=== PATIENT | female | born 1990 | race African-American/Black ===

== ENCOUNTER 2017-02-12 00:58 | Emergency (ER) | payer OTHER ==
[~2017-02-12] VITALS: Ht 167.6 cm; Wt 80.0 kg
[2017-02-12 01:03] VITALS: Ht 167.6 cm; Wt 80.0 kg
[2017-02-12 01:22] LABS: URINE BLOOD (Dip) POC Negative (NEGATIVE)
[2017-02-12] MEDS ORDERED: IBUP-1542 PO (01:23)
[2017-02-12 01:40] VITALS: RESP 22; TEMP 99.5
[2017-02-12 02:38] LABS: ADD SCAN DIFF NO
[2017-02-12 02:43] LABS: BASOPHILS % 0.5 % (0.0-2.0); EOSINOPHILS # 0.1 10^3/ul (0.0-0.5); EOSINOPHILS % 1.4 % (0.0-7.0); HEMATOCRIT 39.4 % (37.0-47.0); HEMOGLOBIN 13.1 g/dl (12.0-16.0); LYMPHOCYTES # 2.8 10^3/ul (0.8-2.9); LYMPHOCYTES % 44.5 % (15.0-51.0); MEAN CORPUSCULAR HEMOGLOBIN 30.5 pg (29.0-33.0); MEAN CORPUSCULAR HGB CONC 33.2 g/dl (32.0-37.0); MEAN CORPUSCULAR VOLUME 91.6 fl (82.0-101.0); MEAN PLATELET VOLUME 9.5 fl (7.4-10.4); MONOCYTE # 0.5 10^3/ul (0.3-0.9); MONOCYTES % 7.1 % (0.0-11.0); NEUTROPHIL # 2.9 10^3/ul (1.6-7.5); NEUTROPHILS % 46.3 % (39.0-77.0); PLATELET COUNT 265 10^3/UL (140-415); WHITE BLOOD COUNT 6.3 10^3/ul (4.8-10.8)
[2017-02-12 02:46] LABS: ADD UMIC NO; URINE BILIRUBIN (Dip) NEGATIVE (NEGATIVE); URINE BLOOD (Dip) NEGATIVE (NEGATIVE); URINE COLOR LT. YELLOW (YELLOW); URINE GLUCOSE (Dip) NEGATIVE (NEGATIVE); URINE KETONES (Dip) NEGATIVE (NEGATIVE); URINE LEUKOCYTE ESTERASE (Dip) NEGATIVE (NEGATIVE); URINE NITRITE (Dip) NEGATIVE (NEGATIVE); URINE TOTAL PROTEIN (Dip) NEGATIVE (NEGATIVE); URINE UROBILINOGEN (Dip) 1.0 E.U./dL (0.1-1.0)
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
[2017-02-12 02:56] LABS: ALBUMIN 4.7 g/dl (3.3-4.9)
[2017-02-12 02:57] LABS: POTASSIUM 3.4 mmol/L (3.5-5.1)
[2017-02-12 02:59] LABS: ALBUMIN/GLOBULIN RATIO 1.34; CREATININE 0.82 mg/dl (0.44-1.00); TOTAL PROTEIN 8.2 g/dl (6.1-8.1)
[2017-02-12 03:00] LABS: CALCIUM 9.1 mg/dl (8.4-10.2)
[2017-02-12] MEDS ORDERED: SUCRALFATE (100 MG/ML) 10ML CUP GTB SCH (03:00)
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
[2017-02-12 03:11] VITALS: BP 125/73; PULSE 75
== END 2017-02-12 03:13 | disposition home or self-care (01) ==
LOC: E/R 00:58
DX: S30.1XXA Contusion of abdominal wall, initial encounter (principal); K21.0 Gastro-esophageal reflux disease with esophagitis; I10 Essential (primary) hypertension; W50.0XXA Accidental hit or strike by another person, initial encounter; Y92.89 Other specified places as the place of occurrence of the external cause
CPT/HCPCS: 36415; 76705; 80053; 81003; 83690; 85025

== ENCOUNTER 2017-10-30 22:17 | Emergency (ER) | payer SELFPAY ==
[~2017-10-30] VITALS: Ht 162.6 cm; Wt 88.8 kg
[~2017-10-30 22:17] MED LIST: IBUP-1542 PO
[2017-10-30 22:20] VITALS: Ht 162.6 cm; Wt 88.8 kg
--- NOTE | 2017-10-30 23:13 | ERD ---
ER Documentation Chief Complaint Chief Complaint 2 months , vag bleeding x 2 days HPI 26-year-old female presents here to emergency department for complaints of vaginal bleeding for the last 2 days, patient is wearing depend, has soaked 4 pads per day. Patient is approximately 8 weeks . Patient is 2 para 1, 0. Patient is complaining of pelvic pain cramping pain, 4/ scale, accompanying the vaginal bleeding. Patient denies any fever chills. Patient denies any hematuria or dysuria. ROS All systems reviewed and are negative except as per history of present illness. Medications Home Meds Active Scripts Ibuprofen* (Ibuprofen*) 600 Mg Tablet, 600 MG PO Q8 for PAIN AND/OR INFLAMMATION , #30 TAB Prov:ALAN MENA MD 02/12/17 Allergies Allergies: Coded Allergies: Sulfa (Sulfonamide Antibiotics) (Verified Allergy, Unknown, 02/12/17) PMhx/Soc History of Surgery: Yes Anesthesia Reaction: No Hx Cardiac Disorders: Yes (htn) Hx Alcohol Use: No Hx Substance Use: No Hx Tobacco Use: No Smoking Status: Never smoker FmHx Family History: No coronary disease, No diabetes, No other Physical Exam Vitals Vital Signs Date Time Temp Pulse Resp B/P Pulse Ox O2 Delivery O2 Flow Rate FiO2 10/30/17 22:20 99.2 86 20 151/94 100 Physical Exam GENERAL: The patient is well developed and appropriate for usual state of health, in no apparent distress. CHEST: Clear to auscultation bilaterally. There are no rales, wheezes or rhonchi. HEART: Regular rate and rhythm. No murmurs, clicks, rubs or gallops. No S3 or S4. ABDOMEN: Soft, nontender and nondistended. Good bowel sounds. No rebound or guarding. No gross peritonitis. No gross organomegaly or masses. No Lopez sign or McBurney point tenderness. BACK: No midline or flank tenderness. EXTREMITIES: Equal pulses bilaterally. There is no peripheral clubbing, cyanosis or edema. No focal swelling or erythema. Full range of motion. Grossly neurovascularly intact. NEURO: Alert and oriented. Cranial nerves 2-12 intact. Motor strength in all 4 extremities with 5/5 strength. Sensation grossly intact. Normal speech and gait. SKIN: There is no apparent rash or petechia. The skin is warm and dry. HEMATOLOGIC AND LYMPHATIC: There is no evidence of excessive bruising or lymphedema. No gross cervical, axillary, or inguinal lymphadenopathy. Vaginal: Moderate amount of blood in the vaginal vault, cervical) no cervical motion tenderness or adnexal tenderness noted Result Diagram: 10/30/17 2340 Results 24 hrs Laboratory Tests Test 10/30/17 23:40 10/30/17 23:45 White Blood Count 8.310^3/ul Red Blood Count 3.8510^6/ul Hemoglobin 11.7g/dl Hematocrit 34.9% Mean Corpuscular Volume 90.6fl Mean Corpuscular Hemoglobin 30.4pg Mean Corpuscular Hemoglobin Concent 33.5g/dl Red Cell Distribution Width 12.1% Platelet Count 02531^3/UL Mean Platelet Volume 8.9fl Neutrophils % 58.9% Lymphocytes % 30.3% Monocytes % 8.1% Eosinophils % 1.7% Basophils % 0.5% Nucleated Red Blood Cells % 0.0/100WBC Neutrophils # 4.910^3/ul Lymphocytes # 2.510^3/ul Monocytes # 0.710^3/ul Eosinophils # 0.110^3/ul Basophils # 0.010^3/ul Nucleated Red Blood Cells # 0.010^3/ul Beta HCG, Quantitative 9161.5mIU/ml Urine Color GABY Urine Clarity CLEAR Urine pH 5.0 Urine Specific [place] 1.029 Urine Ketones NEGATIVEmg/dL Urine Nitrite POSITIVEmg/dL Urine Bilirubin NEGATIVEmg/dL Urine Urobilinogen 2+mg/dL Urine Leukocyte Esterase NEGATIVELeu/ul Urine Microscopic RBC 53/HPF Urine Microscopic WBC 21/HPF Urine Squamous Epithelial Cells FEW/HPF Urine Mucus MODERATE/HPF Urine Hemoglobin 3+mg/dL Urine Glucose NEGATIVEmg/dL Urine Total Protein 1+mg/dl PROCEDURE: US OB. CLINICAL INDICATION: Positive , vaginal bleeding TECHNIQUE: Transabdominal and transvaginal views of the pelvis are available for review. COMPARISON: No prior studies are available for comparison. FINDINGS: Uterus: Normal contour and, the size estimated at 12.7 x 7.9 x 5.8 cm. There is no evidence of myometrial mass. Endometrial cavity: No intrauterine is identified, the thickness is normal measuring 7.8 mm. Normal blood flow on Doppler interrogation is demonstrated. Right ovary / adnexa: The ovary is not visualized. There is no evidence of adnexal mass or free fluid. Left ovary/adnexa: The ovary is not visualized. There is no evidence of adnexal mass or free fluid. Cul-de-sac: No evidence of free fluid. RPTAT:HJJR IMPRESSION: No intrauterine identified. Ectopic is not excluded, but there are no suspicious findings at this time. Correlation with serial beta HCGs is suggested with followup as clinically indicated. Physician Adriel Date Time Electronically viewed and signed by Todd Saeed Physician on 10/30/2017 23:46 JR/ CC: BART PALMER [employer] Procedures/MDM Medical Decision Making: Patients vaginal bleeding is most likely consistent of possible spontaneous . Patient does not show any evidence of hypovolemic shock. Patients hemoglobin and hematocrit is stable. There is low suspicion for ectopic . CARMEN results show intrauterine , patient had a previous ultrasound with possible gestational sac, most likely has passed the .. BetaHCG Quantitative is very low for an 8 week .The patient is Rh+, does not need RhoGAM this time. There is no signs of symptoms of dehydration. There is low suspicion for sepsis. Patient appears well and is hemodynamically stable. Patient also has urinary tract infection is currently on treatment. Disposition: Home. Condition: Stable Instructions: Patient is advised to do bed rest, avoid heavy lifting, and avoid having sex until cleared by OB doctor. Patient is advised to follow up with OB doctor or here at the ER in 48 hours for reevaluation of symptoms, repeat beta HCG quantitative and ultrasound. Patient is advised that is symptoms are worst, severe bleeding, dizziness, severe abdominal pain, fever, worst signs and symptoms to return to the emergency department immediately. Disclaimer: Inadvertent spelling and grammatical errors are likely due to EHR/ dictation software use and do not reflect on the overall quality of patient care. Also, please note that the electronic time recorded on this note does not necessarily reflect the actual time of the patient encounter. Departure Diagnosis: Primary Impression: Vaginal bleeding in patient at less than 20 weeks gestation Condition: Stable Patient Instructions: Bleeding During Early Additional Instructions: Patient is advised to do bed rest, avoid heavy lifting, and avoid having sex until cleared by OB doctor. Patient is advised to follow up with OB doctor or here at the ER in 48 hours for reevaluation of symptoms, repeat beta HCG quantitative and ultrasound. Patient is advised that is symptoms are worst, severe bleeding, dizziness, severe abdominal pain, fever, worst signs and symptoms to return to the emergency department immediately. BART PALMER NP Oct 30, 2017 23:12
--- NOTE | 2017-10-30 23:46 | RADRPT ---
PROCEDURE: US OB. CLINICAL INDICATION: Positive , vaginal bleeding TECHNIQUE: Transabdominal and transvaginal views of the pelvis are available for review. COMPARISON: No prior studies are available for comparison. FINDINGS: Uterus: Normal contour and, the size estimated at 12.7 x 7.9 x 5.8 cm. There is no evidence of singh metrial mass. Endometrial cavity: No intrauterine is identified, the thickness is normal measuring 7.8 mm. Normal blood flow on Doppler interrogation is demonstrated. Right ovary / adnexa: The ovary is not visualized. There is no evidence of adnexal mass or free fl uid. Left ovary/adnexa: The ovary is not visualized. There is no evidence of adnexal mass or free fluid . Cul-de-sac: No evidence of free fluid. RPTAT:HJJR IMPRESSION: No intrauterine identified. Ectopic is not excluded, but there are no suspiciou s findings at this time. Correlation with serial beta HCGs is suggested with followup as clinically indicated. Physician Adriel Date Time Electronically viewed and signed by Physician Adriel on 10/30/2017 23:46 /
[2017-10-30 23:56] LABS: BASOPHILS % 0.5 % (0.0-2.0); EOSINOPHILS # 0.1 10^3/ul (0.0-0.5); EOSINOPHILS % 1.7 % (0.0-7.0); HEMATOCRIT 34.9 % (37.0-47.0); HEMOGLOBIN 11.7 g/dl (12.0-16.0); LYMPHOCYTES # 2.5 10^3/ul (0.8-2.9); LYMPHOCYTES % 30.3 % (15.0-51.0); MEAN CORPUSCULAR HEMOGLOBIN 30.4 pg (29.0-33.0); MEAN CORPUSCULAR HGB CONC 33.5 g/dl (32.0-37.0); MEAN CORPUSCULAR VOLUME 90.6 fl (82.0-101.0); MEAN PLATELET VOLUME 8.9 fl (7.4-10.4); MONOCYTE # 0.7 10^3/ul (0.3-0.9); MONOCYTES % 8.1 % (0.0-11.0); NEUTROPHIL # 4.9 10^3/ul (1.6-7.5); NEUTROPHILS % 58.9 % (39.0-77.0); PLATELET COUNT 244 10^3/UL (140-415); RED BLOOD COUNT 3.85 10^6/ul (4.20-5.40); RED CELL DISTRIBUTION WIDTH 12.1 % (11.5-14.5); WHITE BLOOD COUNT 8.3 10^3/ul (4.8-10.8)
[2017-10-31 00:04] LABS: ADD UMIC YES; UR ASCORBIC ACID 20 mg/dL (NEGATIVE); UR BILIRUBIN (Dip) NEGATIVE (NEGATIVE); UR BLOOD (Dip) 3+ mg/dL (NEGATIVE); UR CLARITY CLEAR (CLEAR); UR COLOR AMBER (YELLOW); UR GLUCOSE (Dip) NEGATIVE (NEGATIVE); UR KETONES (Dip) NEGATIVE (NEGATIVE); UR LEUKOCYTE ESTERASE (Dip) NEGATIVE Leu/ul (NEGATIVE); UR MUCUS MODERATE /HPF (NONE SEEN); UR NITRITE (Dip) POSITIVE (NEGATIVE); UR RBC 53 /HPF (0-5); UR SPECIFIC GRAVITY (Dip) 1.029 (1.003-1.030); UR SQUAMOUS EPITHELIAL CELL FEW /HPF (FEW); UR TOTAL PROTEIN (Dip) 1+ mg/dl (NEGATIVE); UR UROBILINOGEN (Dip) 2+ mg/dL (NEGATIVE)
== END 2017-10-31 01:32 | disposition home or self-care (01) ==
LOC: FTE 22:17
DX: O20.9 Hemorrhage in early pregnancy, unspecified (principal); O10.011 Pre-existing essential hypertension complicating pregnancy, first trimester; R10.2 Pelvic and perineal pain; Z3A.01 Less than 8 weeks gestation of pregnancy
CPT/HCPCS: 76801; 76817; 81001; 84702; 85025; 86900; 86901

== ENCOUNTER 2018-03-06 00:05 | Emergency (ER) | END 2018-03-06 01:00 | disposition home or self-care (01) ==

== ENCOUNTER 2018-11-29 07:49 | Outpatient (CLI) | payer BC ==
[~2018-11-29] VITALS: Ht 175.3 cm; Wt 100.8 kg
[2018-11-29 08:00] VITALS: BP 129/63; PULSE 88; RESP 18; Ht 175.3 cm; Wt 100.8 kg
[2018-11-29] MEDS ORDERED: LABE100T7 PO (08:05)
[2018-11-29] MEDS ORDERED: PREN-99 PO (08:06)
[2018-11-29] MEDS ORDERED: ACETAMINOPHEN 500 MG TAB PO STA (09:25)
--- NOTE | 2018-11-29 12:04 | TRIAGE ---
OB Triage Datetime Report Generated by CPN: 11/29/2018 12:03 Datetime: 11/29/2018 10:55 Labor Evaluation Frequency: none Monitor Mode: External Resting Tone [place]: Relaxed Heart Rate FHR Baseline Rate: 150 Monitor Mode: External US FHR Baseline Changes: No Baseline Change Variability: Moderate 6-25 bpm Decelerations: Variable Category: Category II Datetime: 11/29/2018 10:36 Pain Assessment Pain Scale: 3 Pain Presence: Intermittent Pain Type: Ache Pain Location: Head; Neck Pain Relief Measures: Comfort Measures Datetime: 11/29/2018 10:01 Labor Evaluation Frequency: none Monitor Mode: External Resting Tone [place]: Relaxed Heart Rate FHR Baseline Rate: 150 Monitor Mode: External US FHR Baseline Changes: No Baseline Change Variability: Moderate 6-25 bpm Decelerations: Variable Category: Category II Comments: appropriate for GA Datetime: 11/29/2018 09:20 Maternal Assessment Level of Consciousness: Fully Conscious DTR's/Clonus: DTRs 2+; No Clonus Headache: Occipital; Frontal Blurred Vision: Yes RUQ Epigastric Pain: Denies Datetime: 11/29/2018 08:14 Stage of : OB Triage Assessment Type: Triage Maternal Assessment Level of Consciousness: Fully Conscious DTR's/Clonus: DTRs 2+; No Clonus Headache: Denies Blurred Vision: No Respiratory Effort: Unlabored; Regular Rhythm; Equal Expansion Breath Sounds, Left: Clear and Equal Breath Sounds, Right: Clear and Equal Nausea/Vomiting: Denies RUQ Epigastric Pain: Denies Lower Extremities Edema: Bilateral Lower Extremities Degree: 1+ Upper Extremities Edema: None Degree: None Facial Edema: None Temperature Route: Oral Fall Risk Assessment History of Falling: (0) No Secondary Diagnosis: (0) No Ambulatory Aid: (0) Bedrest/Nurse Assist IV Therapy: (0) No Gait: (0) Normal/Bedrest/Immobile Mental Status: (0) Oriented to Own Ability Fall Score: 0 Fall Risk Score Definition: No Risk: No action required Labor Evaluation Frequency: none Monitor Mode: External Resting Tone [place]: Relaxed Heart Rate FHR Baseline Rate: FHT at 158 Monitor Mode: External US FHR Baseline Changes: No Baseline Change Pain Assessment Pain Scale: 7 Pain Presence: Intermittent Pain Type: Ache Pain Location: Head; Neck Datetime: 11/29/2018 08:09 Time of Arrival: 11/29/2018 07:42 EGA: 20.4 Arrived By: Ambulatory Arrived From: Home Chief Complaint: SOB, headache, neckpain, blurred vision Movement: Present Contractions: Denies/Absent Rupture of Membranes: Denies Vaginal Bleeding: None Vaginal Discharge: Denies Recent Sexual Intercouse: Denies Abdominal Trauma: Not Applicable Patient Complaints: None Initial Plan: MICHELLE
--- NOTE | 2018-11-29 12:27 | PN ---
Triage Information Date/Time November 29, 2018 Reason for visit: Rule out PIH Weeks of Gestation 20 weeks and 4 days /Para 2 para 1 Diabetes: none Hypertention: none Additional information 27-year-old with IUP at 20 weeks and [address] care [address] Tee, presented with complaint of headache, blurred vision today. Reports GARCÍA was in the posterior occiputal area with radiation to the frontal area and Right side of the head. Reports had checked her blood pressure at home and was 140/90s Antepartum course was comp gated by chronic hypertension. Patient currently on labetalol 100 mg p.o. twice daily. She reports increased weight gain since beginning of as well as swelling of lower extremity and hands. She works as an RN in the hospital. Has been monitoring and checking her blood pressure at home Denies any prior episodes of similar headaches in the past. Denies any leaking of fluid, vaginal bleeding decreased movement. Objective Vital Signs Date Temp Pulse Resp B/P (MAP) Pulse Ox O2 O2 Flow FiO2 Time Delivery Rate 11/29/18 98.6 88 18 129/63 Room Air 08:00 (85) Heart Rate: 130's Heart Rate Comments Category 1 Exam Appearance: Alert and oriented x4 does not appear to be in any acute distress Abdomen: Soft, gravid, fundal height consistent with gestational age heart tracing appropriate for gestational age [place] no contraction on the monitor Neuro exam: Within normal limits Laboratory Tests Test 11/29/18 09:28 11/29/18 09:47 Urine Color YELLOW Urine Clarity CLEAR Urine pH 6.0 Urine Specific [place] 1.027 Urine Ketones TRACE mg/dL Urine Nitrite NEGATIVE mg/dL Urine Bilirubin NEGATIVE mg/dL Urine Urobilinogen 1+ mg/dL Urine Leukocyte Esterase NEGATIVE Sarah/ul Urine Microscopic RBC 1 /HPF Urine Microscopic WBC 1 /HPF Urine Squamous Epithelial Cells FEW /HPF Urine Mucus FEW /HPF Urine Hemoglobin NEGATIVE mg/dL Urine Glucose NEGATIVE mg/dL Urine Total Protein 1+ mg/dl White Blood Count 8.5 10^3/ul Red Blood Count 3.63 10^6/ul Hemoglobin 10.9 g/dl Hematocrit 32.9 % Mean Corpuscular Volume 90.6 fl Mean Corpuscular Hemoglobin 30.0 pg Mean Corpuscular Hemoglobin Concent 33.1 g/dl Red Cell Distribution Width 12.5 % Platelet Count 202 10^3/UL Mean Platelet Volume 9.4 fl Immature Granulocytes % 0.800 % Neutrophils % 60.4 % Lymphocytes % 27.6 % Monocytes % 9.4 % Eosinophils % 1.3 % Basophils % 0.5 % Nucleated Red Blood Cells % 0.0 /100WBC Immature Granulocytes # 0.070 10^3/ul Neutrophils # 5.1 10^3/ul Lymphocytes # 2.3 10^3/ul Monocytes # 0.8 10^3/ul Eosinophils # 0.1 10^3/ul Basophils # 0.0 10^3/ul Nucleated Red Blood Cells # 0.0 10^3/ul Prothrombin Time 12.8 Sec Prothrombin Time Ratio 1.0 INR International Normalized Ratio 0.95 Activated Partial Thromboplast Time 23.1 Sec Sodium Level 137 mmol/L Potassium Level 4.0 mmol/L Chloride Level 106 mmol/L Carbon Dioxide Level 25 mmol/L Anion Gap 6 Blood Urea Nitrogen 6 mg/dl Creatinine 0.55 mg/dl Est Glomerular Filtrat Rate mL/min > 60 mL/min Glucose Level 83 mg/dl Uric Acid 3.8 mg/dl Calcium Level 9.2 mg/dl Total Bilirubin 0.2 mg/dl Direct Bilirubin 0.00 mg/dl Indirect Bilirubin 0.2 mg/dl Aspartate Amino Transf (AST/SGOT) 26 IU/L Alanine Aminotransferase (ALT/SGPT) 49 IU/L Alkaline Phosphatase 58 IU/L Total Protein 6.4 g/dl Albumin 3.6 g/dl Globulin 2.80 g/dl Albumin/Globulin Ratio 1.28 Results/Medications Result Diagram: 11/29/1847 11/29/18 0947 Results 24 hrs Laboratory Tests Test 11/29/18 09:28 11/29/18 09:47 Urine Color YELLOW Urine Clarity CLEAR Urine pH 6.0 Urine Specific [place] 1.027 Urine Ketones TRACE A Urine Nitrite NEGATIVE Urine Bilirubin NEGATIVE Urine Urobilinogen 1+ H Urine Leukocyte Esterase NEGATIVE Urine Microscopic RBC 1 Urine Microscopic WBC 1 Urine Squamous Epithelial Cells FEW Urine Mucus FEW A Urine Hemoglobin NEGATIVE Urine Glucose NEGATIVE Urine Total Protein 1+ H White Blood Count 8.5 # Red Blood Count 3.63 L Hemoglobin 10.9 L Hematocrit 32.9 L Mean Corpuscular Volume 90.6 Mean Corpuscular Hemoglobin 30.0 Mean Corpuscular Hemoglobin Concent 33.1 Red Cell Distribution Width 12.5 Platelet Count 202 Mean Platelet Volume 9.4 Immature Granulocytes % 0.800 H Neutrophils % 60.4 Lymphocytes % 27.6 Monocytes % 9.4 Eosinophils % 1.3 Basophils % 0.5 Nucleated Red Blood Cells % 0.0 Immature Granulocytes # 0.070 H Neutrophils # 5.1 Lymphocytes # 2.3 Monocytes # 0.8 Eosinophils # 0.1 Basophils # 0.0 Nucleated Red Blood Cells # 0.0 Prothrombin Time 12.8 Prothrombin Time Ratio 1.0 INR International Normalized Ratio 0.95 Activated Partial Thromboplast Time 23.1 Sodium Level 137 Potassium Level 4.0 Chloride Level 106 Carbon Dioxide Level 25 Anion Gap 6 Blood Urea Nitrogen 6 L Creatinine 0.55 Est Glomerular Filtrat Rate mL/min > 60 Glucose Level 83 Uric Acid 3.8 Calcium Level 9.2 Total Bilirubin 0.2 Direct Bilirubin 0.00 Indirect Bilirubin 0.2 Aspartate Amino Transf (AST/SGOT) 26 Alanine Aminotransferase (ALT/SGPT) 49 Alkaline Phosphatase 58 Total Protein 6.4 Albumin 3.6 Globulin 2.80 Albumin/Globulin Ratio 1.28 Disposition: Discharge Assessment/Plan IUP at 20 weeks and 4 days Chronic hypertension, well controlled with labetalol 100 mg p.o. twice daily Patient has serial blood pressure monitoring in triage for several hours. Blood pressures are all within normal range. PH labs were negative. She received thousand milligrams of Tylenol orally and her headache improved significantly from 7-3. Advised the patient recommended to go to emergency room for evaluation of headache as recommended by her primary OB Dr. Tee. I reviewed again her on the signs and symptoms of preeclampsia including headache, blurred vision, epigastric pain or right upper quadrant pain. Again strict precaution was given to patient. Advised patient to rest and take baby aspirin 80 mg once a day and to again report to emergency room or triage if she has above symptoms especially if the headache does not resolve with p.o. Tylenol I still recommend the patient to be seen in the emergency room. Patient verbalized understanding importance of this ER visit Follow-up within 24 hours with her primary OB office with a nurse visit discussed with patient Advised the patient to have rest at home All questions were answered to patient's best satisfaction and patient verbalized understanding. DIANE VERDIN MD Nov 29, 2018 12:22
== END 2018-11-29 11:37 | disposition home or self-care (01) ==
LOC: OBT 07:49 → L-D 07:50 → OBT 11:37
PROVIDERS: ATTEND Obstetrics & Gynecology
DX: O13.2 Gestational [pregnancy-induced] hypertension without significant proteinuria, second trimester (principal); Z3A.20 20 weeks gestation of pregnancy
CPT/HCPCS: 80053; 81001; 84560; 85025; 85610; 85730; G0463

== ENCOUNTER 2019-01-01 14:16 | Inpatient (IN) | payer BC ==
[~2019-01-01] VITALS: Ht 175.3 cm; Wt 104.9 kg
[~2019-01-01 14:16] MED LIST changes: -IBUP-1542 PO; +LABE100T7 PO; +PREN-99 PO
[2019-01-01 14:57] VITALS: Ht 175.3 cm; Wt 104.9 kg
[2019-01-01 14:58] VITALS: BP 137/75; PULSE 105; RESP 20
[2019-01-01] MEDS ORDERED: PNV11TAB PO (15:11)
--- NOTE | 2019-01-01 18:00 | HP ---
Date/Time of Note Date/Time of Note DATE: 01/01/19 TIME: 17:56 OB - History Hx of Present Free Text/Dictation 26+wks GA with Chronic HTN on labetalol : 4 Para: 1 Care: Good Care Ultrasounds: Normal mid trimester US Obstetrical Complications: Gestational Hypertension Medical Complications: None Past Family/Social History * Past Medical, Surgical, Family and Obstetric Histories reviewed from chart. PMH Chronic HTN PSH denies Alergy Sulfa and lorazepam OB Admission Exam Vital Signs Vital Signs Vital Signs Date Temp Pulse Resp B/P (MAP) Pulse Ox O2 O2 Flow FiO2 Time Delivery Rate 01/01/19 98.6 105 20 137/75 98 14:58 (95) Physical Exam Abdomen: WNL Extremities: Normal Membranes: Intact Heart Rate: 140's Accelerations: Accelerations Present Decelerations: No Decelerations Varibility: Marked Last 72 hours Lab Results CBC & BMP 01/01/19 15:48 Liver Function Test 01/01/19 15:48 Alanine Aminotransferase (ALT/SGPT) 29 Albumin 3.4 Alkaline Phosphatase 54 Aspartate Amino Transf (AST/SGOT) 24 Direct Bilirubin 0.00 Total Protein 6.2 OB Assessment/Plan Reason for admission: observation Plan: Expectant Management Other plan: CXL EFW 24 hr urine for Pr Close Monitoring Close Observation Perinatology consult Neonatology consult MARTY BOLTON M.D. Jan 01, 2019 18:00
[2019-01-01] MEDS ORDERED: LABETALOL 100 MG TAB PO SCH (21:00)
--- NOTE | 2019-01-02 05:48 | DS ---
Date/Time of Note Date/Time of Note DATE: 01/02/19 TIME: 05:38 Obstetrical Discharge Record Final Diagnosis Final Diagnosis: not delivered Other Final Diagnosis -Single intrauterine at 26 weeks -Chronic hypertension Dr. Tee requests to wheezing, evaluate and discharge the patient. 28 years old 4 para 1021 with single intrauterine at 26 weeks and 2 days with chronic hypertension seen in triage for abdominal pain. She had one elevated blood pressure in range of severe, rest of her blood pressure were within normal limit. She was admitted for 24-hour urine protein collection. She is a known case of chronic hypertension, currently on labetalol 50 mg twice daily. 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 She states her blood pressure at home were normal. She states good movement. She denies nausea, vomiting, shortness of breath, chest pain, headache, visual changes, vaginal bleeding or LOF. Her blood pressure during observation in triage and then admission were within normal limits. Patient states would like to be discharged home and will collect 24-hour urine at home. Sign and symptom of labor, preeclampsia, kick count discussed in detail with patient. She expressed understanding. All of her questions answered. I strongly recommend continue her medication and have follow-up with her primary OB in 1-2 days. I did also recommend come back to triage with any concerns. Condition on Discharge Physical Assessment Last Vitals: Vital Signs Date Temp Pulse Resp B/P (MAP) Pulse Ox O2 O2 Flow FiO2 Time Delivery Rate 01/01/19 98.6 105 20 137/75 98 14:58 (95) Voiding: Yes Bowel Movement: Yes Breast: Soft, non-tender Fundus: Firm Calf Tenderness: No Patient Condition: Stable CHIQUITA CONTEH Jan 02, 2019 05:48
== END 2019-01-01 22:13 | disposition home or self-care (01) | DRG 832 ==
LOC: L-D 14:16 → OBT 14:16 → L-D 18:00
PROVIDERS: ADMIT Obstetrics & Gynecology; ATTEND Obstetrics & Gynecology
DX: O60.02 Preterm labor without delivery, second trimester (principal); O10.912 Unspecified pre-existing hypertension complicating pregnancy, second trimester; Z3A.26 26 weeks gestation of pregnancy
CPT/HCPCS: 76815; 76817; 80053; 81001; 81003; 84560; 85025; G0463

== ENCOUNTER 2019-02-08 07:06 | Inpatient (IN) | payer BC ==
[~2019-02-08] VITALS: Ht 175.3 cm; Wt 108.1 kg
[2019-02-08 08:03] VITALS: Ht 175.3 cm; Wt 108.1 kg
[2019-02-08 08:04] VITALS: BP 141/74; PULSE 99; RESP 18
[2019-02-08] MEDS ORDERED: TERBUTALINE 1 MG/ML INJ SC ONE (09:00)
[2019-02-08] MEDS ORDERED: LACTATED RINGER'S 1,000 ML IV SCH ×2 (09:00→11:48)
[2019-02-08] MEDS ORDERED: ACETAMINOPHEN 500 MG TAB PO STA (09:44)
[2019-02-08] MEDS ORDERED: ACETAMINOPHEN 325 MG TAB PO PRN (13:00)
[2019-02-08] MEDS ORDERED: LABETALOL 100 MG TAB PO SCH (14:00)
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
--- NOTE | 2019-02-08 22:50 | QN ---
Documentation Comment addendum to OB discharge summary after the several hours of observation with bed rest pain got alleviated, no uterine activities noted on EFM KB neg discharge home and f/u at her OB CARLOS MONTANA MD Feb 08, 2019 22:50
== END 2019-02-08 18:00 | disposition home or self-care (01) | DRG 833 ==
LOC: L-D 07:06 → OBT 07:06 → L-D 11:30
PROVIDERS: ADMIT Obstetrics & Gynecology; ATTEND Obstetrics & Gynecology
DX: O26.893 Other specified pregnancy related conditions, third trimester (principal); S30.1XXA Contusion of abdominal wall, initial encounter; O13.3 Gestational [pregnancy-induced] hypertension without significant proteinuria, third trimester; Z3A.30 30 weeks gestation of pregnancy; W50.0XXA Accidental hit or strike by another person, initial encounter
CPT/HCPCS: 76817; 76818; 81001; 81003; 85025; 85460; 85610; 85730; 86850; 86900; 86901; 87086; G0463; J3105; J7120

== ENCOUNTER 2019-02-11 09:36 | Outpatient (CLI) | payer BC ==
[2019-02-11] MEDS ORDERED: LABETALOL 100 MG TAB PO ONE (10:30)
--- NOTE | 2019-02-11 14:32 | PN ---
Triage Information Date/Time Reason for visit: chronic GHT for PIH panel Weeks of Gestation 31+ /Para 4/1 Diabetes: none Hypertention: none Objective Heart Rate: 140's Contractions: None Results/Medications Result Diagram: 02/11/19 1104 02/11/19 1104 Results 24 hrs Laboratory Tests Test 02/11/19 10:30 02/11/19 11:04 02/11/19 12:40 Urine Color YELLOW Urine Clarity CLEAR Urine pH 6.0 Urine Specific [place] 1.020 Urine Ketones NEGATIVE Urine Nitrite NEGATIVE Urine Bilirubin NEGATIVE Urine Urobilinogen NEGATIVE Urine Leukocyte Esterase NEGATIVE Urine Microscopic RBC 1 Urine Microscopic WBC 1 Urine Squamous Epithelial Cells FEW Urine Bacteria FEW A Urine Mucus FEW A Urine Hemoglobin NEGATIVE Urine Glucose NEGATIVE Urine Total Protein NEGATIVE White Blood Count 7.7 Red Blood Count 3.66 L Hemoglobin 10.9 L Hematocrit 33.5 L Mean Corpuscular Volume 91.5 Mean Corpuscular Hemoglobin 29.8 Mean Corpuscular Hemoglobin Concent 32.5 Red Cell Distribution Width 12.6 Platelet Count 207 Mean Platelet Volume 9.0 Immature Granulocytes % 1.300 H Neutrophils % 64.7 Lymphocytes % 21.3 Monocytes % 11.1 H Eosinophils % 1.2 Basophils % 0.4 Nucleated Red Blood Cells % 0.0 Immature Granulocytes # 0.100 H Neutrophils # 5.0 Lymphocytes # 1.6 Monocytes # 0.9 Eosinophils # 0.1 Basophils # 0.0 Nucleated Red Blood Cells # 0.0 Prothrombin Time 12.5 Prothrombin Time Ratio 1.0 INR International Normalized Ratio 0.92 Activated Partial Thromboplast Time 24.3 Fibrinogen 432.0 Sodium Level 139 Potassium Level 3.8 Chloride Level 109 Carbon Dioxide Level 25 Anion Gap 5 Blood Urea Nitrogen 6 L Creatinine 0.59 Est Glomerular Filtrat Rate mL/min > 60 Glucose Level 81 Uric Acid 4.5 Calcium Level 9.1 Total Bilirubin 0.7 Direct Bilirubin 0.00 Indirect Bilirubin 0.7 Aspartate Amino Transf (AST/SGOT) 24 Alanine Aminotransferase (ALT/SGPT) 28 Alkaline Phosphatase 75 Total Protein 6.6 Albumin 3.5 Globulin 3.10 Albumin/Globulin Ratio 1.12 Fibronectin NEGATIVE Disposition: Discharge Assessment/Plan No headache No blurry vision no epigastric pain Labs reviewed Ultrasound reviewed BPP 08/22 [facility]ST[facility] ANSWERED PRECAUTIONS DISUCSSED COLLECT 24 HR URINE FOR WA MARTY BOLTON M.D. Feb 11, 2019 14:32
== END 2019-02-11 14:45 | disposition home or self-care (01) ==
LOC: L-D 09:36 → OBT 09:36
PROVIDERS: ATTEND Obstetrics & Gynecology
DX: O13.3 Gestational [pregnancy-induced] hypertension without significant proteinuria, third trimester (principal); Z3A.31 31 weeks gestation of pregnancy
CPT/HCPCS: 76817; 76818; 80053; 81003; 82731; 84560; 85025; 85384; 85610; 85730; G0463

== ENCOUNTER 2019-02-12 16:57 | Outpatient (CLI) | payer BC ==
[~2019-02-12] VITALS: Ht 172.7 cm; Wt 108.5 kg
[2019-02-12 17:08] VITALS: Ht 172.7 cm; Wt 108.5 kg
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
--- NOTE | 2019-02-12 22:53 | PN ---
Triage Information Date/Time Reason for visit: Patient with chronic hypertension, collected 24-hour urine protein. She is here for lab result Weeks of Gestation 31 weeks and 2 days /Para Diabetes: none Hypertention: essential Objective Heart Rate: 140's Contractions: None Results/Medications Results 24 hrs Laboratory Tests Test 02/12/19 17:05 Urine Color YELLOW Urine Clarity CLEAR Urine pH 6.0 Urine Specific [place] 1.020 Urine Ketones NEGATIVE Urine Nitrite NEGATIVE Urine Bilirubin NEGATIVE Urine Urobilinogen NEGATIVE Urine Leukocyte Esterase NEGATIVE Urine Hemoglobin NEGATIVE Urine Random Creatinine 112.01 Urine Collection Duration 24 Urine Total Volume 24 Hours 1450 Urine Creatinine Timed 24 Creatinine Clearance 191.2 H Urine Total Volume (Protein) 1450 Urine Total Protein 24 Hour 174.0 Urine Glucose NEGATIVE Urine Total Protein NEGATIVE Disposition: Discharge Assessment/Plan 28 years old with single intrauterine at 31 weeks and 2 days with a GIUSEPPE of 04/14/2019 with elevated blood pressure, currently on labetalol 100 mg every 12 hours. She has been collected 24-hour urine, presented to triage for performing lab. She states good movement. She denies nausea, vomiting, shortness of breath, chest pain, abdominal pain, headache, visual changes, vaginal bleeding or LOF. -FHR: No sign of metabolic acidosis- Category I -Contractions: None -Ultrasound performed yesterday with normal amniotic fluid -24-hour urine protein is 174 -Symptoms and sign of labor, preeclampsia, kick count, 24 hours urine protein lab result discussed with patient, she voiced understanding. All of her questions answered. -Patient was discharged home in stable condition with the appropriate discharge instructions provided. I strongly recommend continue labetalol 100 mg every 12 hours. I would like patient to have close follow-up with her primary physician or outpatient clinic in 1-2 days or return to triage for worsening symptoms or any other urgent concerns. CHIQUITA CONTEH Feb 12, 2019 22:53
== END 2019-02-12 19:55 | disposition home or self-care (01) ==
LOC: OBT 16:57 → L-D 16:58 → OBT 19:55
PROVIDERS: ATTEND Obstetrics & Gynecology
DX: O16.3 Unspecified maternal hypertension, third trimester (principal); Z3A.31 31 weeks gestation of pregnancy
CPT/HCPCS: 81003; 82575; 84156; G0463

== ENCOUNTER 2019-03-05 15:01 | Outpatient (CLI) | payer BC ==
[~2019-03-05] VITALS: Ht 175.3 cm; Wt 107.9 kg
[2019-03-05 15:14] VITALS: BP 143/68; PULSE 123; RESP 18; Ht 175.3 cm; Wt 107.9 kg
--- NOTE | 2019-03-05 18:01 | PN ---
Triage Information Date/Time Reason for visit: Uterine contractions Weeks of Gestation 34+ /Para 4/1 Hypertention: none Objective Vital Signs Date Temp Pulse Resp B/P (MAP) Pulse Ox O2 O2 Flow FiO2 Time Delivery Rate 03/05/19 98.6 123 18 143/68 15:14 (93) Heart Rate: 140's Contractions: None Results/Medications Result Diagram: 03/05/19 1636 03/05/19 1636 Results 24 hrs Laboratory Tests Test 03/05/19 16:10 03/05/19 16:36 Urine Color YELLOW Urine Clarity SLIGHTLY CLOUDY A Urine pH 6.0 Urine Specific [place] 1.021 Urine Ketones TRACE A Urine Nitrite NEGATIVE Urine Bilirubin NEGATIVE Urine Urobilinogen NEGATIVE Urine Leukocyte Esterase NEGATIVE Urine Microscopic RBC 0 Urine Microscopic WBC 2 Urine Squamous Epithelial Cells FEW Urine Bacteria FEW A Urine Hemoglobin NEGATIVE Urine Glucose NEGATIVE Urine Total Protein NEGATIVE White Blood Count 7.3 Red Blood Count 3.66 L Hemoglobin 10.7 L Hematocrit 33.2 L Mean Corpuscular Volume 90.7 Mean Corpuscular Hemoglobin 29.2 Mean Corpuscular Hemoglobin Concent 32.2 Red Cell Distribution Width 12.7 Platelet Count 226 Mean Platelet Volume 9.0 Immature Granulocytes % 1.500 H Neutrophils % 66.6 Lymphocytes % 22.9 Monocytes % 7.9 Eosinophils % 0.8 Basophils % 0.3 Nucleated Red Blood Cells % 0.0 Immature Granulocytes # 0.110 H Neutrophils # 4.9 Lymphocytes # 1.7 Monocytes # 0.6 Eosinophils # 0.1 Basophils # 0.0 Nucleated Red Blood Cells # 0.0 Prothrombin Time 13.6 Prothrombin Time Ratio 1.1 INR International Normalized Ratio 1.03 Activated Partial Thromboplast Time 24.3 Fibrinogen 455.0 # Sodium Level 137 Potassium Level 3.6 Chloride Level 107 Carbon Dioxide Level 23 Anion Gap 7 Blood Urea Nitrogen 8 Creatinine 0.64 Est Glomerular Filtrat Rate mL/min > 60 Glucose Level 116 Uric Acid 4.3 Calcium Level 9.6 Total Bilirubin 0.5 Direct Bilirubin 0.00 Indirect Bilirubin 0.5 Aspartate Amino Transf (AST/SGOT) 22 Alanine Aminotransferase (ALT/SGPT) 33 Alkaline Phosphatase 100 Total Protein 6.6 Albumin 3.4 Globulin 3.20 Albumin/Globulin Ratio 1.06 Disposition: Discharge Assessment/Plan BPs reviewed No Headache No epigastric Pain No Blurry vision Labs reviewed BPP --->Return to clinic in2 days for BP monitoring --->Precautions discussed --->follow up with provider MARTY BOLTON M.D. Mar 05, 2019 18:01
--- NOTE | 2019-03-05 18:09 | TRIAGE ---
OB Triage Datetime Report Generated by CPN: 03/05/2019 18:09 Datetime: 03/05/2019 17:56 Labor Evaluation Frequency: occ Monitor Mode: External Duration (sec)2399: 60 Quality: Mild Pattern: Normal: <= 5 Contractions in 10 Minutes Resting Tone [place]: Relaxed Heart Rate FHR Baseline Rate: 140 Monitor Mode: External US Variability: Moderate 6-25 bpm Accelerations: 15X15 Decelerations: None Category: Category I Datetime: 03/05/2019 17:00 Pattern: Normal: <= 5 Contractions in 10 Minutes Resting Tone [place]: Relaxed Contraction Comments: NO UC Heart Rate FHR Baseline Rate: 145 Monitor Mode: External US Variability: Moderate 6-25 bpm Accelerations: 15X15 Decelerations: None Category: Category I Datetime: 03/05/2019 16:01 Pattern: Normal: <= 5 Contractions in 10 Minutes Resting Tone [place]: Relaxed Contraction Comments: no uc Heart Rate FHR Baseline Rate: 145 Monitor Mode: External US Variability: Moderate 6-25 bpm Accelerations: 15X15 Decelerations: None Category: Category I Pain Assessment Pain Scale: 6 Pain Presence: Constant Pain Type: Pressure Pain Location: Abdomen; Back Pain Goal: 3 Datetime: 03/05/2019 15:43 Vaginal Exam Dilatation (cms): 0.0 Exam By: wliu Datetime: 03/05/2019 15:30 Pattern: Normal: <= 5 Contractions in 10 Minutes Resting Tone [place]: Relaxed Contraction Comments: no uc Heart Rate FHR Baseline Rate: 145 Monitor Mode: External US Variability: Moderate 6-25 bpm Accelerations: 15X15 Decelerations: None Category: Category I Datetime: 03/05/2019 15:12 Assessment Type: Triage Maternal Assessment Level of Consciousness: Fully Conscious DTR's/Clonus: DTRs 2+; No Clonus Headache: Denies Blurred Vision: No Respiratory Effort: Unlabored; Regular Rhythm; Equal Expansion Breath Sounds, Left: Clear and Equal Breath Sounds, Right: Clear and Equal Nausea/Vomiting: Denies RUQ Epigastric Pain: Denies Lower Extremities Edema: None Degree: None Upper Extremities Edema: None Degree: None Facial Edema: None Fall Risk Assessment History of Falling: (0) No Secondary Diagnosis: (0) No Ambulatory Aid: (0) Bedrest/Nurse Assist IV Therapy: (0) No Gait: (0) Normal/Bedrest/Immobile Mental Status: (0) Oriented to Own Ability Fall Score: 0 Fall Risk Score Definition: No Risk: No action required Datetime: 03/05/2019 15:11 Time of Arrival: 03/05/2019 14:55 EGA: 34.2 Arrived By: Ambulatory Arrived From: Home Chief Complaint: C/O lower abdominal pressure, lower back pain Movement: Present Contractions: Denies/Absent Rupture of Membranes: Denies Vaginal Bleeding: None Vaginal Discharge: Denies Recent Sexual Intercouse: Denies Abdominal Trauma: Not Applicable Patient Complaints: Back Pain; Other Time Provider Notified: 03/05/2019 15:21 Provider Notified: Initial Plan: r/o ptl Datetime: 02/12/2019 14:50 EGA: 31.2 Datetime: 02/11/2019 09:35 EGA: 31.1 Datetime: 02/08/2019 07:24 Fall Score: 0 Fall Risk Score Definition: No Risk: No action required Datetime: 02/08/2019 07:22 EGA: 30.5 Datetime: 01/02/2019 23:45 EGA: 25.4 Datetime: 01/01/2019 19:27 Fall Score: 0 Fall Risk Score Definition: No Risk: No action required Datetime: 01/01/2019 18:47 Fall Score: 0 Fall Risk Score Definition: No Risk: No action required Datetime: 01/01/2019 14:57 Fall Score: 0 Fall Risk Score Definition: No Risk: No action required Datetime: 01/01/2019 14:52 EGA: 25.2 Datetime: 11/29/2018 08:14 Fall Score: 0 Fall Risk Score Definition: No Risk: No action required Datetime: 11/29/2018 08:09 EGA: 20.4
== END 2019-03-05 18:10 | disposition home or self-care (01) ==
LOC: OBT 15:01 → L-D 15:03 → OBT 18:10
PROVIDERS: ATTEND Obstetrics & Gynecology
DX: O62.9 Abnormality of forces of labor, unspecified (principal); Z3A.34 34 weeks gestation of pregnancy
CPT/HCPCS: 76818; 80053; 81001; 84560; 85025; 85384; 85610; 85730; G0463; 81003

== ENCOUNTER 2019-03-25 18:30 | Outpatient (CLI) | payer BC ==
[~2019-03-25] VITALS: Ht 175.3 cm; Wt 117.6 kg
[2019-03-25 19:08] VITALS: Ht 175.3 cm; Wt 117.6 kg
--- NOTE | 2019-03-25 20:59 | PN ---
Triage Information Date/Time March 25, 2019 Reason for visit: blurry vision,swollen hands and feet Weeks of Gestation 37w 1d /Para 4/1 Diabetes: none Hypertention: essential Additional information PMHx: HTN x 8 years, after her prior child. PSHx: [place] teeth. All: sulfa, lorazepam. Objective 123/67 HR 110-125 ( no change in multiple visits at [facility]) Heart Rate: 140's Heart Rate Comments Accels to 170 BPM. No decels. Contractions: None Results/Medications Results 24 hrs Laboratory Tests Test 03/25/19 16:48 Urine Color YELLOW Urine Clarity SLIGHTLY CLOUDY A Urine pH 7.0 Urine Specific [place] 1.011 Urine Ketones NEGATIVE Urine Nitrite NEGATIVE Urine Bilirubin NEGATIVE Urine Urobilinogen NEGATIVE Urine Leukocyte Esterase NEGATIVE Urine Microscopic RBC 0 Urine Microscopic WBC 1 Urine Squamous Epithelial Cells FEW Urine Bacteria FEW A Urine Hemoglobin NEGATIVE Urine Glucose NEGATIVE Urine Total Protein NEGATIVE Disposition: Discharge Assessment/Plan A: IUP at 37w 1d. CHTN. P: Keep appt with Dr Tee tomorrow as scheduled. PIH precautions reviewed. Pt reports she is going to be induced at 39 weeks. Pt feels very comfortable going home. Her symptoms have abated, for the most part. LINDA SONI MD March 25, 2019 20:59
--- NOTE | 2019-03-25 22:16 | TRIAGE ---
OB Triage Datetime Report Generated by CPN: 03/25/2019 22:16 Datetime: 03/25/2019 18:59 Maternal Assessment Level of Consciousness: Fully Conscious DTR's/Clonus: DTRs 1+ Headache: Denies Blurred Vision: No Respiratory Effort: Unlabored Breath Sounds, Left: Clear and Equal Breath Sounds, Right: Clear and Equal Nausea/Vomiting: Denies RUQ Epigastric Pain: Denies Facial Edema: None Labor Evaluation Frequency: NONE Monitor Mode: External Resting Tone [place]: Relaxed Heart Rate FHR Baseline Rate: 155 Monitor Mode: External US Variability: Moderate 6-25 bpm Accelerations: 15X15 Decelerations: None Category: Category I Pain Assessment Pain Scale: 6 Pain Presence: Constant Pain Type: Ache Pain Location: Abdomen Pain Goal: 4 Vaginal Exam Membrane Status: Intact Datetime: 03/25/2019 18:40 Assessment Type: Triage Time of Arrival: 03/25/2019 18:40 EGA: 37.1 Arrived By: Ambulatory Arrived From: Home Chief Complaint: PT CAME IN C/O BLURRED VISION AND CONSTANT LOWER ABDOMINAL PAIN Movement: Present Contractions: Denies/Absent Rupture of Membranes: Denies Vaginal Bleeding: None Vaginal Discharge: Denies Recent Sexual Intercouse: Denies Abdominal Trauma: Not Applicable Additional Patient Complaints: NONE Time Provider Notified: 03/25/2019 19:20 Provider Notified: Dr Tee (Annotations: Data stored by N on behalf of user) Initial Plan: NST Maternal Assessment Level of Consciousness: Fully Conscious DTR's/Clonus: DTRs 2+; No Clonus Headache: Denies Respiratory Effort: Unlabored; Regular Rhythm; Equal Expansion Breath Sounds, Left: Clear and Equal Breath Sounds, Right: Clear and Equal Nausea/Vomiting: Denies RUQ Epigastric Pain: Denies Lower Extremities Edema: Bilateral Lower Extremities Degree: 1+ Upper Extremities Edema: Bilateral Upper Extremities Degree: 1+ Facial Edema: None Fall Risk Assessment History of Falling: (0) No Secondary Diagnosis: (0) No Ambulatory Aid: (0) Bedrest/Nurse Assist IV Therapy: (0) No Gait: (0) Normal/Bedrest/Immobile Mental Status: (0) Oriented to Own Ability Fall Score: 0 Fall Risk Score Definition: No Risk: No action required Datetime: 03/05/2019 15:12 Fall Score: 0 Fall Risk Score Definition: No Risk: No action required Datetime: 03/05/2019 15:11 EGA: 34.2 Datetime: 02/12/2019 14:50 EGA: 31.2 Datetime: 02/11/2019 09:35 EGA: 31.1 Datetime: 02/08/2019 07:24 Fall Score: 0 Fall Risk Score Definition: No Risk: No action required Datetime: 02/08/2019 07:22 EGA: 30.5 Datetime: 01/02/2019 23:45 EGA: 25.4 Datetime: 01/01/2019 19:27 Fall Score: 0 Fall Risk Score Definition: No Risk: No action required Datetime: 01/01/2019 18:47 Fall Score: 0 Fall Risk Score Definition: No Risk: No action required Datetime: 01/01/2019 14:57 Fall Score: 0 Fall Risk Score Definition: No Risk: No action required Datetime: 01/01/2019 14:52 EGA: 25.2 Datetime: 11/29/2018 08:14 Fall Score: 0 Fall Risk Score Definition: No Risk: No action required Datetime: 11/29/2018 08:09 EGA: 20.4
== END 2019-03-25 21:09 | disposition home or self-care (01) ==
LOC: OBT 18:30 → L-D 18:31 → OBT 21:09
PROVIDERS: ATTEND Obstetrics & Gynecology
DX: O16.3 Unspecified maternal hypertension, third trimester (principal); Z3A.37 37 weeks gestation of pregnancy
CPT/HCPCS: 81001; G0463; 81003

== ENCOUNTER 2019-03-30 07:02 | Inpatient (IN) | payer BC ==
[~2019-03-30] VITALS: Ht 175.3 cm; Wt 112.0 kg
[2019-03-30] MEDS: MISOPROSTOL 25 MCG CAPSULE VAG SCH ×4 (00:46→18:40)
[2019-03-30] MEDS ORDERED: OXYTOCIN 30 UNITS/LR 500 ML IV SCH ×2 (08:30)
[2019-03-30] MEDS ORDERED: LIDOCAINE 1% (MPF) 30 ML INJ INJ PRN (08:30)
[2019-03-30] MEDS ORDERED: OXYTOCIN 30 UNITS/LR 500 ML IV PRN (08:30)
[2019-03-30] MEDS ORDERED: CARBOPROST 250 MCG INJ IM PRN (08:30)
[2019-03-30] MEDS ORDERED: MISOPROSTOL 200 MCG TAB PR PRN (08:30)
[2019-03-30] MEDS ORDERED: IBUPROFEN 600 MG TAB PO PRN (08:30)
[2019-03-30] MEDS ORDERED: AMPICILLIN 2 GM/NS (PMX) 100 ML IV ONE (08:30)
[2019-03-30] MEDS ORDERED: METHYLERGONOVINE 0.2 MG INJ IM PRN (08:30)
[2019-03-30 08:40] VITALS: BP 131/81; PULSE 96; RESP 16; Ht 175.3 cm; Wt 112.0 kg
[2019-03-30] MEDS: LACTATED RINGER'S 1,000 ML IV SCH ×2 (08:52→17:55)
[2019-03-30] MEDS ORDERED: MISOPROSTOL 50 MCG CAPSULE VAG SCH (09:00)
[2019-03-30] MEDS: ACETAMINOPHEN 325 MG TAB PO PRN ×3 (09:23→21:56)
[2019-03-30] MEDS: AMPICILLIN 1 GM/NS (PMX) 50 ML IV SCH ×3 (12:59→21:57)
--- NOTE | 2019-03-30 15:52 | HP ---
Date/Time of Note Date/Time of Note DATE: 03/30/19 TIME: 15:46 OB - History Hx of Present Free Text/Dictation 28 years old P1021 at 38 4 /7 weeks hx of chronic HTN for IOL per Dr. Nowak. GBS positive s/p MP x 2 FH reassuriing plan routine intrapartum caRE mp Pit PCN Chief Complaint: as above Estimated Due Date: April 09, 2019 : 4 Para: 1 Obstetrical Complications: Other (chronic HTN) Past Family/Social History * Past Medical, Surgical, Family and Obstetric Histories reviewed from chart. OB Admission Exam Vital Signs Vital Signs Vital Signs Date Temp Pulse Resp B/P (MAP) Pulse Ox O2 O2 Flow FiO2 Time Delivery Rate 03/30/19 98.1 96 16 131/81 08:40 (98) Last 72 hours Lab Results CBC & BMP 03/30/19 08:30 Liver Function Test 03/30/19 08:30 Alanine Aminotransferase (ALT/SGPT) 45 Albumin 3.6 Alkaline Phosphatase 129 H Aspartate Amino Transf (AST/SGOT) 29 Direct Bilirubin 0.00 Total Protein 6.9 YISSEL NATHAN M.D. March 30, 2019 15:52
[2019-03-30] MEDS: BUTORPHANOL 2 MG INJ IV PRN (18:53)
[2019-03-31] MEDS: LACTATED RINGER'S 1,000 ML IV SCH ×4 (00:26→22:20)
[2019-03-31] MEDS: AMPICILLIN 1 GM/NS (PMX) 50 ML IV SCH ×6 (02:07→23:18)
[2019-03-31] MEDS: ACETAMINOPHEN 325 MG TAB PO PRN ×3 (04:03→19:26)
[2019-03-31] MEDS: MISOPROSTOL 25 MCG CAPSULE VAG SCH ×3 (04:48→09:08)
[2019-03-31] MEDS: BUTORPHANOL 2 MG INJ IV PRN ×3 (06:04→11:15)
[2019-03-31] MEDS ORDERED: OXYTOCIN 30 UNITS/LR 500 ML IV SCH (11:00)
--- NOTE | 2019-03-31 14:36 | QN ---
Documentation Comment pt is feeling well cervix 1.5/80%-3 Ctxs Q 3-4 pt feeling the ctxs using stadol Plan continue pit Epidural PRN YISSEL NATHAN M.D. March 31, 2019 14:36
[2019-03-31] MEDS ORDERED: FENTAnyl 2MCG/ML-ROPIV 0.2% 100 ML ONE (22:46)
[2019-03-31] MEDS ORDERED: FENTAnyl 2MCG/ML-ROPIV 0.2% 100 ML BAG EPI SCH (23:00)
[2019-03-31] MEDS ORDERED: ONDANSETRON 4 MG INJ IV PRN (23:00)
[2019-03-31] MEDS ORDERED: NALOXONE (0.4 MG/ML) INJ IV PRN (23:00)
--- NOTE | 2019-03-31 23:01 | PREAC ---
Date/Time of Note Date/Time of Note DATE: 03/31/19 TIME: 22:58 Anesthesia Eval and Record Evaluation Time Pre-Procedure Interview DATE: 03/31/19 TIME: 22:17 Age 28 Sex female NPO: 8 hrs Preoperative diagnosis iup @ 38.5 wks., , labor, chronic htn. Planned procedure inna Past Medical History Past Medical History: Includes Cardio: HTN : : (4), Para: (1), Gestational age: (38.5 wks.) Surgery & Anesthesia Issues No known issue Meds Anticoagulation: No Beta Rosa within 24 hr: Yes Reported Medications Vit #76/Iron,Carb/FA (Pnv 29-1 Tablet) 1 Each Tablet, 1 EACH PO DAILY, TAB 11/29/18 Labetalol Hcl* (Labetalol Hcl*) 100 Mg Tablet, 100 MG PO BID, TAB 11/29/18 Current Medications Lactated Ringer's 1,000 ml @ 125 mls/hr Q8H IV Last administered on 03/31/19at 22:20; Admin Dose 125 MLS/HR; Start 03/30/19 at 08:26 Ampicillin 50 ml @ 100 mls/hr Q4H IV Last administered on 03/31/19at 19:00; Admin Dose 100 MLS/HR; Start 03/30/19 at 12:30 Butorphanol Tartrate (Stadol) 2 mg Q2H PRN IV .PAIN SCALE 6-10 Last administered on 03/31/19at 06:04; Admin Dose 2 MG; Start 03/30/19 at 08:30 Lidocaine (Xylocaine 1% (Mpf)) 30 ml ONCE PRN INJ .EPISIOTOMY; Start 03/30/19 at 08:30 Oxytocin/Lactated Ringer's 500 ml @ 500 mls/hr ONCE POST IV ; Start 03/30/19 at 08:30 Oxytocin/Lactated Ringer's 500 ml @ 125 mls/hr POST IV ; Start 03/30/19 at 08:30 Ibuprofen (Motrin) 600 mg ONCE PRN PO .PAIN 1-5; Start 03/30/19 at 08:30 Oxytocin/Lactated Ringer's 500 ml @ 0 mls/hr ONCE PRN IV .VAGINAL BLEEDING; Start 03/30/19 at 08:30 Methylergonovine Maleate (Methergine) 0.2 mg ONCE PRN IM .VAGINAL BLEEDING; Start 03/30/19 at 08:30 Carboprost Tromethamine (Hemabate) 250 mcg ONCE PRN IM .VAGINAL BLEEDING; Start 03/30/19 at 08:30 Misoprostol (Cytotec) 1,000 mcg ONCE PRN [place] .VAGINAL BLEEDING; Start 03/30/19 at 08:30 Acetaminophen (Tylenol Tab) 650 mg Q6H PRN PO MILD PAIN(1-3)OR ELEVATED TEMP Last administered on 03/31/19at 19:26; Admin Dose 650 MG; Start 03/30/19 at 09:00 Butorphanol Tartrate (Stadol) 1 mg Q2H PRN IV PAIN Last administered on 03/31/19at 11:15; Admin Dose 1 MG; Start 03/31/19 at 06:00 Oxytocin/Lactated Ringer's 500 ml @ 0 mls/hr FOR INDUCTION IV Last administered on 03/31/19 11:17; Admin Dose 1 MLS/HR; Start 03/31/19 at 11:00 Meds reviewed: Yes Allergies Coded Allergies: lorazepam (Unverified Allergy, Intermediate, 02/12/19) Sulfa (Sulfonamide Antibiotics) (Verified Allergy, Unknown, 02/12/19) Allergies Reviewed: Yes Labs/Studies Labs Reviewed: Reviewed by anesthesiologist Result Diagram: 03/30/1982903/30/19829 test: Positive Pre-procedure Exam Last vitals Vital Signs Date Temp Pulse Resp B/P (MAP) Pulse Ox O2 O2 Flow FiO2 Time Delivery Rate 03/30/19 98.1 96 16 131/81 08:40 (98) Airway: Adequate mouth opening, Adequate thyromental dist Mallampati: Mallampati II Teeth: Normal Lung: Normal Heart: Normal ASA Physical Status ASA physical status: 3 Emergency: E Planned Anesthetic Neuraxial: Epidural Planned Pain Management Epidural, Local by surgeon Pre-operative Attestations Prior to commencing anesthesia and surgery, the patient was re-evaluated, there was verification of: *The patient's identity *The results of appropriate recent lab work and preoperative vital signs *The above evaluation not changing prior to induction *Anesthetic plan, risk benefits, alternative and complications discussed with patient/family; questions answered; patient/family understands, accepts and wishes to proceed. FRANCISCO JAVIER VYAS MD March 31, 2019 23:01
[2019-04-01] MEDS ORDERED: CEFAZOLIN 2 GM/50 ML (PMX) 50 ML IVPB SCH (02:00)
[2019-04-01] MEDS ORDERED: OXYTOCIN 30 UNITS/LR 500 ML IV SCH (02:26)
--- NOTE | 2019-04-01 02:26 | QN ---
Documentation Comment see H&P [id number] YISSEL NATHAN M.D. April 01, 2019 02:26
[2019-04-01] MEDS ORDERED: IBUPROFEN 600 MG TAB PO PRN (02:30)
[2019-04-01] MEDS ORDERED: NACL 0.9% 3 ML SYG IV SCH (02:30)
[2019-04-01] MEDS ORDERED: OXYTOCIN 30 UNITS/LR 500 ML IV PRN (02:30)
[2019-04-01] MEDS ORDERED: HYDROCODONE/APAP (5/325) TAB PO PRN ×2 (02:30)
[2019-04-01] MEDS ORDERED: CARBOPROST 250 MCG INJ IM PRN (02:30)
[2019-04-01] MEDS ORDERED: METHYLERGONOVINE 0.2 MG INJ IM PRN (02:30)
[2019-04-01] MEDS ORDERED: MISOPROSTOL 200 MCG TAB PR PRN (02:30)
[2019-04-01] MEDS ORDERED: CEFAZOLIN 1 GM/50 ML (PMX) 50 ML IVPB SCH (02:30)
[2019-04-01] MEDS ORDERED: ONDANSETRON 4 MG INJ ONE (02:54)
[2019-04-01] MEDS ORDERED: MIDAZOLAM 1 MG/ML 2 ML INJ ONE (02:56)
[2019-04-01] MEDS ORDERED: morphine SULFATE/PF (10 MG/10 ML) INJ ONE (03:01)
[2019-04-01] MEDS ORDERED: LACTATED RINGER'S 1,000 ML IV ONE (03:08)
--- NOTE | 2019-04-01 03:08 | PREAC ---
Date/Time of Note Date/Time of Note DATE: 04/01/19 TIME: 03:04 Anesthesia Eval and Record Evaluation Time Pre-Procedure Interview DATE: 04/01/19 TIME: 02:13 Age 28 Sex female NPO: 8 hrs Preoperative diagnosis iup @ 39 wks., failure to progress, , labor Planned procedure primary c/s Past Medical History Past Medical History: Includes Cardio: HTN : : (4), Para: (1), Gestational age: (39 wks.), PIH Surgery & Anesthesia Issues No known issue Meds Anticoagulation: No Beta Rosa within 24 hr: Yes Reported Medications Vit #76/Iron,Carb/FA (Pnv 29-1 Tablet) 1 Each Tablet, 1 EACH PO DAILY, TAB 11/29/18 Labetalol Hcl* (Labetalol Hcl*) 100 Mg Tablet, 100 MG PO BID, TAB 11/29/18 Current Medications Lactated Ringer's 1,000 ml @ 125 mls/hr Q8H IV Last administered on 03/31/19at 22:20; Admin Dose 125 MLS/HR; Start 03/30/19 at 08:26 Ampicillin 50 ml @ 100 mls/hr Q4H IV Last administered on 03/31/19at 23:18; Admin Dose 100 MLS/HR; Start 03/30/19 at 12:30 Butorphanol Tartrate (Stadol) 2 mg Q2H PRN IV .PAIN SCALE 6-10 Last administered on 03/31/19at 06:04; Admin Dose 2 MG; Start 03/30/19 at 08:30 Lidocaine (Xylocaine 1% (Mpf)) 30 ml ONCE PRN INJ .EPISIOTOMY; Start 03/30/19 at 08:30 Oxytocin/Lactated Ringer's 500 ml @ 500 mls/hr ONCE POST IV ; Start 03/30/19 at 08:30 Oxytocin/Lactated Ringer's 500 ml @ 125 mls/hr POST IV ; Start 03/30/19 at 08:30 Ibuprofen (Motrin) 600 mg ONCE PRN PO .PAIN 1-5; Start 03/30/19 at 08:30 Oxytocin/Lactated Ringer's 500 ml @ 0 mls/hr ONCE PRN IV .VAGINAL BLEEDING; Start 03/30/19 at 08:30 Methylergonovine Maleate (Methergine) 0.2 mg ONCE PRN IM .VAGINAL BLEEDING; Start 03/30/19 at 08:30 Carboprost Tromethamine (Hemabate) 250 mcg ONCE PRN IM .VAGINAL BLEEDING; Start 03/30/19 at 08:30 Misoprostol (Cytotec) 1,000 mcg ONCE PRN [place] .VAGINAL BLEEDING; Start 03/30/19 at 08:30 Acetaminophen (Tylenol Tab) 650 mg Q6H PRN PO MILD PAIN(1-3)OR ELEVATED TEMP Last administered on 03/31/19at 19:26; Admin Dose 650 MG; Start 03/30/19 at 09:00 Butorphanol Tartrate (Stadol) 1 mg Q2H PRN IV PAIN Last administered on 03/31 11:15; Admin Dose 1 MG; Start 03/31/19 at 06:00 Oxytocin/Lactated Ringer's 500 ml @ 0 mls/hr FOR INDUCTION IV Last administered on 03/31/19 11:17; Admin Dose 1 MLS/HR; Start 03/31/19 at 11:00 Naloxone HCl (Narcan) 0.1 mg Q2M PRN IV .RESP RATE; Start 03/31/19 at 23:00; Stop 04/01/19 at 22:59 Ondansetron HCl (Zofran Inj) 4 mg Q6H PRN IV .NAUSEA/VOMITING; Start 03/31/19 at 23:00; Stop 04/01/19 at 22:59 Fentanyl/ Ropivacaine 100 ml EPIDURAL INFUSION EPI ; Start 03/31/19 at 23:00 Cefazolin Sodium/ Dextrose 50 ml @ 100 mls/hr ONCE IVPB ; Start 04/01/19 at 02:00 IV Flush (NS 3 ml) 3 ml PER PROTOCOL IV ; Start 04/01/19 at 02:30 Cefazolin Sodium 50 ml @ 100 mls/hr Q8H IVPB ; Start 04/01/19 at 02:30; Stop 04/01/19 at 18:59 Oxytocin/Lactated Ringer's 500 ml @ 50 mls/hr Q10H IV ; Start 04/01/19 at 02:26; Stop 04/01/19 at 12:25 Acetaminophen/ Hydrocodone Bitart ([place] (5/325)) 1 tab Q4H PRN PO .PAIN 4-6; Start 04/01/19 at 02:30 Acetaminophen/ Hydrocodone Bitart ([place] (5/325)) 2 tab Q4H PRN PO .PAIN 7-10; Start 04/01/19 at 02:30 Ibuprofen (Motrin) 600 mg Q6 PRN PO PAIN; Start 04/01/19 at 02:30 Simethicone (Mylicon) 160 mg Q8H PRN PO .GAS; Start 04/01/19 at 02:30 Lanolin (Lanolin Hpa) 1 applic BEDSIDE MEDICATION PRN TOP .NIPPLES; Start 04/01/19 at 02:30 Oxytocin/Lactated Ringer's 500 ml @ 0 mls/hr ONCE PRN IV .VAGINAL BLEEDING; Start 04/01/19 at 02:30 Methylergonovine Maleate (Methergine) 0.2 mg ONCE PRN IM .VAGINAL BLEEDING; Start 04/01/19 at 02:30 Carboprost Tromethamine (Hemabate) 250 mcg ONCE PRN IM .VAGINAL BLEEDING; Start 04/01/19 at 02:30 Misoprostol (Cytotec) 1,000 mcg ONCE PRN [place] .VAGINAL BLEEDING; Start 04/01/19 at 02:30 Meds reviewed: Yes Allergies Coded Allergies: lorazepam (Unverified Allergy, Intermediate, 02/12/19) Sulfa (Sulfonamide Antibiotics) (Verified Allergy, Unknown, 02/12/19) Allergies Reviewed: Yes Labs/Studies Labs Reviewed: Reviewed by anesthesiologist Result Diagram: 03/30/1982903/30/1930 test: Positive Studies: ECG (n/a), CXR (n/a) Pre-procedure Exam Last vitals Vital Signs Date Temp Pulse Resp B/P (MAP) Pulse Ox O2 O2 Flow FiO2 Time Delivery Rate 03/30/19 98.1 96 16 131/81 08:40 (98) Airway: Adequate mouth opening, Adequate thyromental dist Mallampati: Mallampati II Teeth: Normal Lung: Normal Heart: Normal ASA Physical Status ASA physical status: 3 Emergency: E Planned Anesthetic General/MAC: MAC (after baby born) Neuraxial: Epidural (top up) Planned Pain Management Sub-arachniod narcotics (epidural duramorph), Local by surgeon Pre-operative Attestations Prior to commencing anesthesia and surgery, the patient was re-evaluated, there was verification of: *The patient's identity *The results of appropriate recent lab work and preoperative vital signs *The above evaluation not changing prior to induction *Anesthetic plan, risk benefits, alternative and complications discussed with patient/family; questions answered; patient/family understands, accepts and wishes to proceed. Diagnostic Radiologist used FRANCISCO JAVIER VYAS MD April 01, 2019 03:08
--- NOTE | 2019-04-01 03:18 | HP ---
DATE OF ADMISSION: 03/30/2019 HISTORY OF PRESENT ILLNESS: The patient is a 28-year-old with para 1-0-2-1 38 weeks and 4 days, was admitted for induction of labor secondary to chronic hypertension, now found to have a nonreassuring heart tracing remote from delivery for a primary . PAST MEDICAL HISTORY: Chronic hypertension and obesity. MEDICATIONS: 1. Labetalol 100 mg twice a day. 2. vitamins. OBSTETRICAL HISTORY: Consistent with 1 full term delivery, 1 induced and 1 spontaneous abor tion. ALLERGIES: BACTRIM. REVIEW OF SYSTEMS: Consistent with chronic hypertension cardiovascular. SOCIAL HISTORY: She denies any toxic habits. PAST GYNECOLOGICAL HISTORY: Consistent with a positive HPV on the Pap smear. Also, the patient had a mild anemia and she was taking an iron twice a day. LABORATORY DATA: Consistent with GBS positive. She was on penicillin for that. HIV, hepatitis B, h epatitis C was negative. TSH, T3, T4 was normal. GCT was 129 normal. Syphilis was negative. HIV w as negative. Her blood type is O positive, rubella immune, antibody negative. PHYSICAL EXAMINATION: VITAL SIGNS: Consistent temperature of 98.1, heart rate of 96, respiration of 16 and blood pressure 131/81. heart consistent with decreased variability with late decelerations. She was contract ing every 3 to 4 minutes. GENERAL: She appeared to be in no apparent distress. HEART: Regular rate and rhythm. LUNGS: Clear to auscultation bilaterally. ABDOMEN: Gravid, nontender. EXTREMITIES: +1 edema bilaterally. PELVIC: Examination by the nurse consistent 3 cm, 80% effaced, -2. ASSESSMENT AND PLAN: This is a 28-year-old with para 1-0-2-1, at 38 weeks and 4 days induction of la bor for chronic hypertension, as discussed with Dr. Nowak, the perinatologist, now with nonreassuring heart tracing remote from delivery for primary . The patient understands the risks o f the procedure such as risk of bleeding, infection, damage to internal organs, transfusion, anesthes ia. She understands the benefits of the procedure will be the decrease of and maternal morbidi ty and mortality secondary to nonreassuring heart tracing remote from delivery. She understand s the alternative would be to continue vaginal trial. All questions answered. Dictated By: YISSEL NATHAN MD RA/NELIA Conf#: [id number] DID#: [id number]
--- NOTE | 2019-04-01 03:26 | QN ---
Documentation Comment see op note [id number] YISSEL NATHAN M.D. April 01, 2019 03:26
[2019-04-01] MEDS ORDERED: OXYTOCIN 10 UNIT INJ ONE (03:27)
[2019-04-01] MEDS ORDERED: METOCLOPRAMIDE 10 MG INJ ONE (03:29)
[2019-04-01] MEDS ORDERED: KETOROLAC 30 MG INJ IV PRN (03:30)
[2019-04-01] MEDS ORDERED: NALBUPHINE HCL (10 MG/1 ML) INJ IV PRN (03:30)
[2019-04-01] MEDS ORDERED: HYDROmorphONE 0.5 MG/0.5 ML SYG IV PRN (03:30)
[2019-04-01] MEDS ORDERED: METOCLOPRAMIDE 10 MG INJ IV PRN (03:30)
[2019-04-01] MEDS ORDERED: DIPHENHYDRAMINE 50 MG INJ IV PRN ×2 (03:30)
[2019-04-01] MEDS ORDERED: MEPERIDINE 25 MG INJ IV PRN (03:30)
[2019-04-01] MEDS ORDERED: CITRIC ACID/NA CITRATE 30 ML CUP PO ONE (03:30)
[2019-04-01] MEDS ORDERED: ONDANSETRON 4 MG INJ IV ONE (03:30)
[2019-04-01] MEDS ORDERED: NALOXONE (0.4 MG/ML) INJ IV PRN (03:30)
[2019-04-01] MEDS ORDERED: ONDANSETRON 4 MG INJ IV PRN ×2 (03:30)
[2019-04-01] MEDS ORDERED: KETOROLAC 30 MG INJ ONE (03:43)
[2019-04-01] MEDS: HYDROmorphONE 0.5 MG/0.5 ML SYG IV PRN ×3 (04:30→16:03)
[2019-04-01 06:30] VITALS: BP 133/78; PULSE 103
--- NOTE | 2019-04-01 08:24 | OPR ---
DATE OF OPERATION: 04/01/2019 PREOPERATIVE DIAGNOSES: A 28-year-old with para 1-0-2-1 with history of chronic hypertension, nonrea ssuring heart tracing, remote from delivery and arrest of progress. POSTOPERATIVE DIAGNOSIS: A 28-year-old with para 1-0-2-1 with history of chronic hypertension, nonre assuring heart tracing remote from delivery and arrest of progress. OPERATION PERFORMED: Primary via Pfannenstiel skin incision. SURGEON: Yissel Nathan M.D. CONSTRUCTION TRADES CONTRACTOR: Ulysses Barajas M.D. ANESTHESIA: Epidural anesthesia. ANTIBIOTICS GIVEN: 2 grams of Ancef prior to procedure. FINDINGS: Baby boy, vertex, Apgars 6, 8 and 8, cord x1 around the neck as well as cord within the he ad of the baby and the cervix. Normal appearing ovaries, tubes and uterus. DISPOSITION: Stable to recovery room. ESTIMATED BLOOD LOSS: 800 mL. URINE OUTPUT: 300 mL clear at the end of the procedure. One dose of Hemabate and 800 mcg of misoprostol sublingual was given secondary to uterine atony. DESCRIPTION OF PROCEDURE: After risks, benefits and alternatives of the procedure were discussed wit h the patient. The patient signed consent and taken to the operating room where epidural anesthesia was found to be adequate. Then prepared and draped in normal sterile fashion in the supine position and the leftward tilt. A Pfannenstiel skin incision was then elevated, made with a scalpel and tiana ed throughout the underlying layer of fascia with the Bovie. The fascia was then incised medially, e xtended laterally using the Bovie instrument. The fascia was then superiorly and inferiorl y from the rectus abdominal muscles using the Bovie instrument. The rectus abdominal muscles were th en laterally. The peritoneum entered laterally, manually and sharply. Bladder flap was th en created using the Metzenbaum scissors and the bladder blade was then inserted to protect the bladd er. Uterus incision was then created using the scalpel and carried laterally and manually. Infant w as then removed without any complications. Nose and mouth were suctioned. Cord clamped and cut. In patricia was handed off to the waiting respiratory therapist. Cord blood collected. Placenta removed ma nually. Uterus then exteriorized and cleared of all clots and debris. Uterus was then found to be a tonic and the Hemabate was given. Uterus incision was then repaired using #1 chromic stitch in a loc ked fashion. Good approximation and good hemostasis was noted. Gutters were then cleared of all dylan ts and debris. Uterus was then placed back to the pelvis. Rectus abdominal muscles were then reappr oximated using 2-0 chromic stitch interrupted figure. Fascia was then reapproximated using #1 Vicryl stitch in a running fashion. The subcutaneous layer irrigated and dried. Subcutaneous layer was th en reapproximated using 2-0 plain stitch in an interrupted figure. Skin was then closed using the st apler. Abdominal pads placed in the incision to create tamponade. All instrument count, lap count, needle count found to be correct x3. The patient was again taken back to recovery room in a stable c ondition and awakened. Dictated By: YISSEL NATHAN MD, RA/NELIA Conf#: [id number] DID#: [id number] CC: YISSEL NATHAN MD;*EndCC*
[2019-04-01 08:30] VITALS: BP 128/65; PULSE 100; RESP 16
[2019-04-01] MEDS: CEFAZOLIN 1 GM/50 ML (PMX) 50 ML IVPB SCH ×2 (10:40→18:15)
[2019-04-01 11:40] VITALS: BP 122/73; PULSE 97; RESP 20
[2019-04-01 16:00] VITALS: BP 130/80; PULSE 115; RESP 20
[2019-04-01 19:41] VITALS: BP 128/71; PULSE 100; RESP 19
[2019-04-02] MEDS: CEFAZOLIN 1 GM/50 ML (PMX) 50 ML IVPB SCH (01:30)
[2019-04-02] MEDS ORDERED: HYDROCODONE/APAP (5/325) TAB PO PRN (02:54)
[2019-04-02] MEDS ORDERED: IBUPROFEN 600 MG TAB PO PRN (02:54)
[2019-04-02 03:02] VITALS: BP 126/75; PULSE 110; RESP 18
[2019-04-02] MEDS: HYDROCODONE/APAP (5/325) TAB PO PRN ×2 (06:51→11:03)
--- NOTE | 2019-04-02 07:34 | PAC ---
Date/Time of Note Date/Time of Note DATE: 04/02/19 TIME: 07:34 Post-Anesthesia Notes Post-Anesthesia Note Last documented vital signs Vital Signs Date Temp Pulse Resp B/P (MAP) Pulse Ox O2 O2 Flow FiO2 Time Delivery Rate 04/02/19 99.2 110 18 126/75 Room Air 03:02 (92) 04/01/19 98 19:41 Activity: WNL Respiratory function: WNL Cardiovascular function: WNL Mental status: Baseline Pain reasonably controlled: Yes Hydration appropriate: Yes Nausea/Vomiting absent: Yes FRANCISCO JAVIER VYAS MD April 02, 2019 07:34
--- NOTE | 2019-04-02 07:35 | OPPN ---
Date/Time of Note Date/Time of Note DATE: 04/02/19 TIME: 07:34 Anesthesia Follow up Anesthesia Follow up Last documented vital signs Vital Signs Date Temp Pulse Resp B/P (MAP) Pulse Ox O2 O2 Flow FiO2 Time Delivery Rate 04/02/19 99.2 110 18 126/75 Room Air 03:02 (92) 04/01/19 98 19:41 Respiratory function: WNL Cardiovascular function: WNL Comments S: Pt. is POD #1. Min. bt pain. Min. n/v. Min. need for bt pain meds. ie nsaids/opiates. ambulating. S: vss, afeb. A: min. bt pain sec. to it mso4. P: no complications. FRANCISCO JAVIER VYAS MD April 02, 2019 07:35
[2019-04-02 07:45] VITALS: BP 132/80; PULSE 136; RESP 20
--- NOTE | 2019-04-02 12:14 | QN ---
Documentation Comment pt is feeling well no concerns + BM, VSS, CBVC stable Exam WNL Plan contineu routine post op care YISSEL BRADSHAW M.D. April 02, 2019 12:14
[2019-04-02 12:19] VITALS: BP 135/85; PULSE 107; RESP 18
[2019-04-02] MEDS: LANOLIN HPA 1 PKT TOP PRN (13:07)
[2019-04-02] MEDS ORDERED: KETOROLAC 30 MG INJ IV PRN (14:00)
[2019-04-02] MEDS: OXYCODONE/ACETAMINOPHEN (5/325) TAB PO PRN ×2 (17:52→23:38)
[2019-04-02 18:05] VITALS: BP 120/75; PULSE 98; RESP 18
[2019-04-02 20:05] VITALS: BP 113/77; PULSE 97; RESP 18
[2019-04-03 03:45] VITALS: BP 123/68; PULSE 115; RESP 19
[2019-04-03] MEDS: OXYCODONE/ACETAMINOPHEN (5/325) TAB PO PRN ×4 (05:21→23:28)
[2019-04-03 08:00] VITALS: BP 127/79; PULSE 95; RESP 20
--- NOTE | 2019-04-03 12:42 | QN ---
Documentation Comment see d/c note [id number] YISSEL NATHAN M.D. April 03, 2019 12:42
[2019-04-03 17:22] VITALS: BP 134/82; PULSE 103
[2019-04-03] MEDS: LANOLIN HPA 1 PKT TOP PRN (17:43)
[2019-04-03 19:45] VITALS: BP 144/87; PULSE 94; RESP 18
--- NOTE | 2019-04-03 22:03 | DS ---
DATE OF ADMISSION: 03/30/2019 DATE OF DISCHARGE: 04/03/2019 HOSPITAL COURSE: The patient had a 3 days ago secondary to a nonreassuring heart tra cing, arrest of progress. Please see operative report for this surgery. Postop day #1 and #2, the p atient was doing well. Vital signs stable. CBC was stable. She was encouraged to ambulate and use pain medication p.r.n. pain. Postoperative day #3, she was doing well, passing gas, passing bowel mo vement. Incision was healing well. The patient will be discharged tomorrow on postop day #4 and we will have at that time. She will follow up with me in my office in 2 weeks' time for incisiona l check. Dictated By: YISSEL NATHAN MD, RA/NELIA Conf#: [id number] DID#: [id number]
[2019-04-04 03:25] VITALS: BP 136/79; PULSE 97; RESP 17
[2019-04-04] MEDS: OXYCODONE/ACETAMINOPHEN (5/325) TAB PO PRN ×2 (05:09→12:08)
[2019-04-04 09:00] VITALS: BP 139/89; PULSE 92; RESP 18
--- NOTE | 2019-04-05 19:06 | DELSUM ---
Delivery Summary A-C Datetime Report Generated by CPN: 04/05/2019 19:06 DELIVERY PERSONNEL Casino Cashier Manager: Tersigni, Anabel MATERNAL INFORMATION Delivery Anesthesia: Epidural Medications in Delivery: see Anesthesia Flowsheet Delivery QBL (ml): 500 Placenta Cultured: No Maternal Complications: Other Other Maternal Complications: chronic hypertension LABOR SUMMARY EDC: 04/10/2019 00:00 No. Babies in Womb: 1 Attempted: No Labor Anesthesia: Epidural LABOR INFORMATION Reason for Induction: Chronic Hypertension Onset of Labor: 03/31/2019 18:40 Cervical Ripening Agents: Cytotec @ Oxytocin: Induction Group B Beta Strep: Positive Antibiotics # of Doses: 11 Antibiotics Time of Last Dose: 04/01/2019 02:40 Steroids Given: None Reason Steroids Not Administered: Not Applicable MEMBRANES Membranes Rupture Method: Spontaneous Rupture of Membranes: 03/31/2019 21:33 Length of Rupture (hr): 5.35 Amniotic Fluid Color: Clear Amniotic Fluid Amount: Moderate Amniotic Fluid Odor: None STAGES OF LABOR Stage 3 hr: 0 Stage 3 min: 1 Total Time in Labor hr: 8 Total Time in Labor min: 15 CSECTION DELIVERY Primary Indication: Nonreassuring Stat Secondary Indication: N/A CSection Urgency: Non Elective CSection Incidence: Primary Labor: Labor Elective: Nonelective CSection Incision: Lower Uterine Transverse BABY A INFORMATION Delivery Date/Time: 04/01/2019 02:54 Method of Delivery: Born in Route : No : N/A Forceps: N/A Vacuum Extraction: N/A Shoulder Dystocia : N/A SHOULDER DYSTOCIA BABY A Infant Delivery Date/Time: 04/01/2019 02:54 PRESENTATION/POSITION BABY A Presentation: Cephalic Cephalic Presentation: Vertex Vertex Position: Left Occipital Anterior Breech Presentation: N/A PLACENTA INFORMATION BABY A Placenta Delivery Time : 04/01/2019 02:55 Placenta Method of Delivery: Manual Removal Placenta Status: Delivered SCORES BABY A Heart Rate 1 min: Slow, Below 100 bpm Resp Effort 1 min: Slow, Irregular Reflex Irritability 1 min: Cough/Sneeze/Pulls Away Muscle Tone 1 min: Active Motion Color 1 min: Blue/Pale Resuscitation Effort 1 min: Tactile Stimulation; Oxygen SCORE 1 MIN: 6 Heart Rate 5 min: >100 bpm Resp Effort 5 min: Slow, Irregular Reflex Irritability 5 min: Cough/Sneeze/Pulls Away Muscle Tone 5 min: Active Motion Color 5 min: Body Athalia, Extremit Blue Resuscitation Effort 5 min: Tactile Stimulation; Oxygen SCORE 5 MIN: 8 Heart Rate 10 min: >100 bpm Resp Effort 10 min: Slow, Irregular Reflex Irritability 10 min: Cough/Sneeze/Pulls Away Muscle Tone 10 min: Active Motion Color 10 min: Body Athalia, Extremit Blue Resuscitation Effort 10 min: Tactile Stimulation; Oxygen SCORE 10 MIN: 8 INFORMATION BABY A Gestational Age at Delivery: 38.5 Gestational Status: Early Term- 37- 38.6 Weeks Outcome : Liveborn Condition : Stable Infant Sex: Male IDENTIFICATION/MEDS BABY A ID Band Number: [id number] ID Band Location: Right Leg; Left Arm Sensor Applied: No Sensor Number: [id number] Sensor Location : Cord Clamp Vitamin K Given : Not Given Erythromycin Given: Not Given WEIGHT/LENGTH BABY A Birthweight (gm): 3240 Infant Weight (lb): 7 Infant Weight (oz): 2 Length (in): 20.25 Infant Length (cm): 51.44 CORD INFORMATION BABY A No. Cord Vessels: 3 Nuchal Cord : Around Neck x1, Loose Cord Blood Taken: Yes Suction: Mouth; Nose; Pharynx ASSESSMENT BABY A Complications: Decreased Variability; Multiple Late Decels; Multiple Variable Decels Complications- Other: suctioned out 5 ml of fluid Physical Findings at Delivery: Within Normal Limits Respirations: Intercostal Retractions; Nasal Flaring; Sternal Retractions Textile Engineer/ALS Called : Yes Infant Care By: STUDENT SPECIALIST/RT/Mesha RN Transferred To: NICU
== END 2019-04-04 18:00 | disposition home or self-care (01) | DRG 788 ==
LOC: L-D 07:02 → PP1 04-01 06:25 → EDSTATUS 04-14 07:00
PROVIDERS: ADMIT Obstetrics & Gynecology; ATTEND Obstetrics & Gynecology
PROC: 10D00Z1 Extraction of Products of Conception, Low, Open Approach (ICD-10-PCS; principal; 2019-04-01 02:00)
DX: O10.92 Unspecified pre-existing hypertension complicating childbirth (principal); O76 Abnormality in fetal heart rate and rhythm complicating labor and delivery; O62.1 Secondary uterine inertia; O69.81X0 Labor and delivery complicated by cord around neck, without compression, not applicable or unspecified; Z3A.38 38 weeks gestation of pregnancy; Z37.0 Single live birth
CPT/HCPCS: 62322; 80053; 81001; 81003; 84560; 85025; 85384; 85610; 85730; 86592; 86850; 86900; 86901; 87340; 99464; J0290; J0595; J0690; J1170; J1885; J2250; J2274; J2405; J2590; J2765; J3010; J7120